=== PATIENT | male | born 1950 | race Caucasian/White ===

== ENCOUNTER 2016-09-24 09:16 | Outpatient (CLI) | payer MEDICARE ==
[2016-09-24 10:00] LABS: eGFR (African) > 60; eGFR (Non-African) > 60
== END 2016-09-24 09:17 ==
LOC: LAB 09:16
PROVIDERS: ATTEND Family Medicine
DX: E11.9 Type 2 diabetes mellitus without complications (principal)
CPT/HCPCS: 36415; 80053; 80061; 83036

== ENCOUNTER 2016-12-31 07:47 | Outpatient (CLI) | payer MEDICARE ==
[2016-12-31 08:38] LABS: eGFR (African) > 60; eGFR (Non-African) > 60
== END 2016-12-31 09:22 ==
LOC: LAB 07:47
PROVIDERS: ATTEND Family Medicine
DX: E11.9 Type 2 diabetes mellitus without complications (principal)
CPT/HCPCS: 36415; 80053; 82043; 83036

== ENCOUNTER 2017-04-17 11:23 | Emergency (ER) | payer MEDICARE ==
[2017-04-17] MEDS ORDERED: ONDANSETRON HCL/PF 4 MG/ 2ML VIAL ONE (11:51)
[2017-04-17] MEDS ORDERED: ONDANSETRON HCL/PF 4 MG/ 2ML VIAL IVP ONE (11:52)
[2017-04-17] MEDS ORDERED: fentaNYL CITRATE/PF 100 MCG/ 2ML AMP ONE (11:52)
[2017-04-17] MEDS ORDERED: fentaNYL CITRATE/PF 100 MCG/ 2ML AMP IVP ONE (11:52)
--- NOTE | 2017-04-17 11:58 | ED Physician Documentation ---
Upper Extremity Injury - HISTORIAN Historian: patient - HPI Chief Complaint: Upper Extremity Injury Onset: just prior to arrival Where: other (golf course) Severity: severe Context: fall Further Comments: yes (66 year old male patient presents with left wrist deformity and pain. Patient states [place] the [place], put his hand down to catch himself.) - ROS CONST: no problems CVS/RESP: none NEURO: none MS/SKIN/LYMPH: none GI/: denies: nausea, vomiting - PAST HX Past History: Rt handed, diabetes Type 2, other (BPH, IDDM, HTN, HLD, Depression , Osteoarthritis, Hep C - completed treatment. Right rotator cuff tear, hernia repair, ) Immunizations: UTD Allergies/Adverse Reactions: Allergies Allergy/AdvReac Type Severity Reaction Status Date / Time No Known Drug Allergies Allergy Verified 04/17/17 11:33 - SOCIAL HX Smoking History: non-smoker - FAMILY HX Family History: denies: none - VITAL SIGNS Vital Signs: Vital Signs Temp Pulse Resp BP Pulse Ox 98.4 F 86 20 151/81 98 04/17/17 11:36 04/17/17 11:36 04/17/17 11:36 04/17/17 11:36 04/17/17 11:36 - REVIEWED ASSESSMENTS Nursing Assessment Reviewed: Yes Vitals Reviewed: Yes Progress - Progress Progress: Patient ate breakfast at 0900 Reviewed xray findings with patient, recommended transfer to orthopedics for closed reduction. Patient prefers [facility]. [address] Cheney at [facility], patient accepted for transport. Patient medicated with fentanyl and zofran IV. Sat <90% after pain medication, O2 placed at 2L NC. Will transport via EMS due to Sat and need for IV pain control. ED Results Lab/Radiology - Radiology Radiology Impressions: Left wrist 3 views a History: Fall and deformity Findings: A comminuted transverse distal left radial metaphysis fracture is present with shaft with posterior displacement and 54 dorsal angulation of the distal fracture fragment. The distal ulna and carpal bones are intact. Impression: Angulated comminuted, and displaced distal left radius fracture. Electronically signed on Apr 17, 2017 11:57:12 AM NURSING TECHNICIAN by: David Asencio Left forearm 2 views History: Deformity after fall Findings: A comminuted transverse distal left radial metaphysis fracture is present with shaft with posterior displacement and moderate dorsal angulation of the distal fracture fragment. The ulna is intact. Impression: Angulated and displaced distal left radius fracture Electronically signed on Apr 17, 2017 12:01:27 PM NURSING TECHNICIAN by: David Asencio - Orders Orders: ED Orders Category Date Time Status Place IV Lock 1T Care 04/17/17 11:52 Active Short Arm Splint 1T Care 04/17/17 11:53 Active FOREARM 2 VIEWS [RAD] Stat Exams 04/17/17 Ordered WRIST 3 VIEWS OR MORE [RAD] Stat Exams 04/17/17 Ordered CBC/PLATELET/DIFF Stat Lab 04/17/17 12:07 Received CMP Stat Lab 04/17/17 12:07 Received Chem Sticks Med 04/17/17 13:00 Ordered 1 each MC PRN Ondansetron HCl/Pf [Zofran 4 mg/2 ml] Med 04/17/17 11:51 Discontinued 4 mg .ROUTE .STK-MED ONE Ondansetron HCl/Pf [Zofran 4 mg/2 ml] Med 04/17/17 11:52 Discontinued 4 mg IVP NOW ONE fentaNYL CITRATE/PF [Duragesic] Med 04/17/17 11:52 Discontinued 100 mcg .ROUTE .STK-MED ONE fentaNYL CITRATE/PF [Duragesic] Med 04/17/17 11:52 Discontinued 100 mcg IVP NOW ONE Upper Extremity Injury Physic - Physical Exam General Appearance: moderate distress Hand: normal inspection, non-tender, no evidence of injury, normal ROM Wrist: deformity (obvious deformity left wrist and forearm area), limited ROM, pain, swelling Elbow/Forearm: normal inspection, non-tender, no evidence of injury, normal ROM Neuro/Vascular/Tendon: no vascular compromise, motor nml, sensation nml, ROM nml , other (left radial pulse 3+, able to move all fingers, patient denies numbness or tingling. ) Skin: warm,dry Head/ENT: nml inspection, pharynx nml Neck/Back: nml inspection, non-tender Resp/CVS: chest non-tender, breath sounds nml, heart sounds nml, no resp. distress, lungs clear, reg. rate & rhythm Abdomen: non-tender, pelvis stable Discharge Clincal Impression: Distal radius fracture, left Qualifiers: Encounter type: initial encounter Fracture type: closed Fracture morphology: other fracture Qualified Code(s): S52.592A - Other fractures of lower end of left radius, initial encounter for closed fracture Referrals: Sean Sanchez MD [Primary Care Provider] - 2 Days Condition: Stable Disposition: 02 XFER [facility] HOSP Decision to Admit: NO Decision Time: 12:15
[2017-04-17 12:17] LABS: BASOPHILS % 0.5 (0.0-1.5); EOSINOPHILS % 2.9 % (0.0-6.8); MEAN CORPUSCULAR HEMOGLOBIN 31.3 pg (28.0-34.0); MEAN CORPUSCULAR VOLUME 94.2 fl (80.0-100.0); NEUTROPHILS # 5.5 # k/uL (1.4-7.7)
[2017-04-17 12:25] LABS: eGFR (African) > 60; eGFR (Non-African) > 60
[2017-04-17 12:50] VITALS: BP 135/65
--- NOTE | 2017-04-17 22:58 | Diagnostic Imaging Report ---
JAQUELINE LOCKE (MICKEY) - [facility] [address] [address] Report Submission Date: Apr 17, 2017 12:01:27 PM MODEL SET ARTIST Patient Study Name: LYUDMILA MORRISON Date: Apr 17, 2017 11:43:40 AM MODEL SET ARTIST Modality Type: CR Gender: M Description: UPPER EXTREMITY : 52 Institution: [facility] Physician: JAQUELINE LOCKE) - ER Left forearm 2 views History: Deformity after fall Findings: A comminuted transverse distal left radial metaphysis fracture is present with shaft with posterior displacement and moderate dorsal angulation of the distal fracture fragment. The ulna is intact. Impression: Angulated and displaced distal left radius fracture Electronically signed on Apr 17, 2017 12:01:27 PM MODEL SET ARTIST by: David CHERRY
--- NOTE | 2017-04-17 22:58 | Diagnostic Imaging Report ---
JAQUELINE LOCKE (MICKEY) - [facility] [id number] [address] Report Submission Date: Apr 17, 2017 11:57:12 AM BOATING SAFETY OFFICER Patient Study Name: LYUDMILA MORRISON Date: Apr 17, 2017 11:40:10 AM BOATING SAFETY OFFICER Modality Type: CR Gender: M Description: UPPER EXTREMITY : 52 Institution: [facility] Physician: JAQUELINE LOCKE) - ER Left wrist 3 views a History: Fall and deformity Findings: A comminuted transverse distal left radial metaphysis fracture is present with shaft with posterior displacement and 54 dorsal angulation of the distal fracture fragment. The distal ulna and carpal bones are intact. Impression: Angulated comminuted, and displaced distal left radius fracture. Electronically signed on Apr 17, 2017 11:57:12 AM BOATING SAFETY OFFICER by: David CHERRY
== END 2017-04-17 12:47 | disposition short-term general hospital (02) ==
LOC: ED 11:23
DX: S52.592A Other fractures of lower end of left radius, initial encounter for closed fracture (principal); W19.XXXA Unspecified fall, initial encounter; Y93.9 Activity, unspecified; Y99.9 Unspecified external cause status
CPT/HCPCS: 73090; 73110; 80053; 85025; 96374; 96375; 99284; J2405; J3010; S1016

== ENCOUNTER 2018-08-30 09:13 | Outpatient (CLI) | payer MEDICARE ==
[2018-08-30 10:00] LABS: eGFR (Non-African) > 60
== END 2018-08-30 09:15 ==
LOC: LAB 09:13
PROVIDERS: ATTEND Family Medicine
DX: E11.9 Type 2 diabetes mellitus without complications (principal)
CPT/HCPCS: 36415; 80053; 80061; 82043; 83036

== ENCOUNTER 2019-02-28 08:34 | Outpatient (CLI) | payer MEDICARE ==
[2019-02-28 09:07] LABS: A1C 5.5 % (<5.7)
[2019-02-28 09:24] LABS: HDL 43 mg/dL (>40); eGFR (Non-African) > 60
== END 2019-02-28 08:39 | disposition home or self-care (01) ==
LOC: LAB 08:34
PROVIDERS: ATTEND Family Medicine
DX: E11.9 Type 2 diabetes mellitus without complications (principal)
CPT/HCPCS: 36415; 80053; 80061; 82043; 83036